=== PATIENT | male | born 1965 | race Caucasian/White ===

== ENCOUNTER 2020-02-21 06:34 | Day surgery (SDC) | payer BC, OTHER ==
[2020-02-21] MEDS ORDERED: Propofol 200 MG/20 ML SDV IV ONE (06:35)
[2020-02-21] MEDS ORDERED: Lactated Ringers 1,000 ML IV SCH (06:45)
[2020-02-21] MEDS ORDERED: Sodium Chloride 0.9% 10 ML Syringe FLUSH PRN (06:45)
--- NOTE | 2020-02-21 08:29 | PCM.OPNOTE ---
- General Post-Op/Procedure Note Date of Surgery/Procedure: 02/21/20 Operative Procedure(s): egd with biopsy Findings: gastroduodenitis Rossi's esophagus Pre Op Diagnosis: hematemasis Post-Op Diagnosis: gastroduodenitis. Rossi's esophagus Anesthesia Technique: DIANE Primary Surgeon: Ford Gore Anesthesia Provider: Juan Cardoso Pathology: stomach, duodenum and esophagus Complications: None Condition: Good Free Text/Narrative:: see dictation
--- NOTE | 2020-02-21 09:56 | OR ---
DATE OF OPERATION: 02/21/2020 SURGEON: Ford Gore MD PROCEDURE PERFORMED: Esophagogastroduodenoscopy with cold forceps biopsy. PREOPERATIVE DIAGNOSIS: Hematemesis. POSTOPERATIVE DIAGNOSES: 1. Gastroduodenitis. 2. Questionable Rossi's esophagus. INDICATIONS FOR PROCEDURE: This is a 54-year-old white male who, last weekend, had an episode of vomiting, and then with the second wave of emesis, noted some blood. He has a history of heavy alcohol use, was offered and accepted an EGD. DESCRIPTION OF OPERATION: After an excellent IV sedation was administered, the bite block was inserted. Flexible endoscope was passed without difficulty down the patient's esophagus into the stomach. Stomach was insufflated. Scope passed through the pylorus to 2nd portion of the duodenum and slowly withdrawn. The following findings were noted: In the first portion of the duodenum, patient was noted to have duodenitis. Biopsies were taken. Stomach, some diffuse gastritis, worse in the area of the antrum, biopsies were taken. GE junction measured at 40 cm, and while there was no evidence of any esophagitis, approximately a centimeter proximal to the GE junction, there was a patch of mucosa that had the appearance of Rossi's. This was a single patch measuring approximately 2 to 3 mm in size, and this was biopsied in its entirety and submitted in a single container. Remainder of the esophageal exam was unremarkable. The patient tolerated the procedure well, was taken to recovery in good condition. /[id number] /ERINL
== END 2020-02-21 09:08 | disposition home or self-care (01) ==
LOC: FB.SDS 06:34
PROVIDERS: ATTEND Surgery
DX: K29.90 Gastroduodenitis, unspecified, without bleeding (principal); K29.00 Acute gastritis without bleeding; K29.50 Unspecified chronic gastritis without bleeding; K21.0 Gastro-esophageal reflux disease with esophagitis; F17.200 Nicotine dependence, unspecified, uncomplicated; I10 Essential (primary) hypertension; E66.9 Obesity, unspecified; F17.210 Nicotine dependence, cigarettes, uncomplicated; Z91.012 Allergy to eggs; Z91.011 Allergy to milk products; Z79.899 Other long term (current) drug therapy; Z68.30 Body mass index [BMI] 30.0-30.9, adult
CPT/HCPCS: 88305; 88313; 88342; J2001; J2704; J7120

== ENCOUNTER 2021-07-21 09:54 | Emergency (ER) | payer BC ==
[2021-07-21] MEDS ORDERED: Sodium Chloride 0.9% 10 ML Syringe FLUSH PRN (10:13)
[2021-07-21] MEDS ORDERED: Aspirin 81 MG Tab.Chew PO STA (10:13)
[2021-07-21] MEDS: Nitroglycerin 0.4 MG Tab.SL SL PRN ×3 (10:15→10:30)
--- NOTE | 2021-07-21 10:53 | EDM.PDOC ---
ED HPI GENERAL MEDICAL PROBLEM - General Stated Complaint: chest pain Time Seen by Provider: 07/21/21 10:00 Source of Information: Reports: Patient History Limitations: Reports: No Limitations - History of Present Illness INITIAL COMMENTS - FREE TEXT/NARRATIVE: Patient presented to the ED because of chest pain which started at 2 pm yesterday, sternal area,05/03 with associated dizziness. Pain went away after resting and while at work today he developed another chest pain,06/03. He also has chronic diarrhea, denies having any N/V. No fever, chills, cough or cold. - Related Data Allergies Allergy/AdvReac Type Severity Reaction Status Date / Time egg Allergy Nausea and Verified 02/21/20 07:29 Vomiting lactose Allergy Nausea and Verified 02/21/20 07:29 Vomiting Home Meds: Home Meds Escitalopram Oxalate [Lexapro] 20 mg PO DAILY 02/20/20 [History] Isosorbide Mononitrate [Imdur] 60 mg PO DAILY 02/20/20 [History] Metoprolol Succinate [Toprol Xl] 100 mg PO DAILY 02/20/20 [History] atorvaSTATin [Lipitor] 80 mg PO DAILY 02/20/20 [History] Pantoprazole Sodium [Protonix] 40 mg PO QPM #90 tablet.dr 02/21/20 [Rx] Sucralfate [Carafate] 1 gm PO QIDACANDBED #120 tablet 02/21/20 [Rx] Nitroglycerin 0.4 mg SL ASDIRECTED PRN #30 tab.subl 07/21/21 [Rx] Past Medical History HEENT History: Reports: None Other HEENT History: EPIDERMAL CYST OF THE NECK Cardiovascular History: Reports: High Cholesterol, Hypertension Respiratory History: Reports: None Gastrointestinal History: Reports: None Other Genitourinary History: ERECTILE DYSFUNCTION 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 Musculoskeletal History: Reports: Osteoarthritis Neurological History: Reports: None Psychiatric History: Reports: Depression Other Psychiatric History: ALCOHOL DEPENDENCE, TOBACCO INDEPENDENCE Endocrine/Metabolic History: Reports: Obesity/BMI 30+ Hematologic History: Reports: None Immunologic History: Reports: None Oncologic (Cancer) History: Reports: None - Past Surgical History Head Surgeries/Procedures: Reports: None Cardiovascular Surgical History: Reports: Carotid Stents Respiratory Surgical History: Reports: None GI Surgical History: Reports: None Musculoskeletal Surgical History: Reports: Arthroscopic Knee, Joint Replacement Other Musculoskeletal Surgeries/Procedures:: HIP ARTHROPLASTY Social & Family History - Caffeine Use Caffeine Use: Reports: Coffee ED ROS GENERAL - Review of Systems Review Of Systems: See Below Constitutional: Reports: No Symptoms HEENT: Reports: No Symptoms Respiratory: Reports: No Symptoms Cardiovascular: Reports: Chest Pain Endocrine: Reports: No Symptoms GI/Abdominal: Reports: Diarrhea : Reports: No Symptoms Musculoskeletal: Reports: No Symptoms Skin: Reports: No Symptoms Neurological: Reports: Dizziness Psychiatric: Reports: No Symptoms ED EXAM, GENERAL - Physical Exam Exam: See Below Exam Limited By: No Limitations General Appearance: Alert, No Apparent Distress Eye Exam: Bilateral Eye: PERRL Ears: Normal External Exam, Normal Canal Nose: Normal Inspection, Normal Mucosa, No Blood Throat/Mouth: Normal Inspection, Normal Lips, Normal Teeth, Normal Gums Head: Atraumatic, Normocephalic Neck: Normal Inspection, Supple, Non-Tender, Full Range of Motion Respiratory/Chest: No Respiratory Distress, Lungs Clear, Normal Breath Sounds, No Accessory Muscle Use, Chest Non-Tender Cardiovascular: Normal Peripheral Pulses, Regular Rate, Rhythm, No Edema, No Gallop, No JVD, No Murmur, No Rub, Bradycardia GI/Abdominal: Normal Bowel Sounds, Soft, Non-Tender, No Organomegaly, No Distention, No Abnormal Bruit, No Mass Back Exam: Normal Inspection, Full Range of Motion Extremities: Normal Inspection, Normal Range of Motion, Non-Tender, No Pedal Edema, Normal Capillary Refill Neurological: Alert, Oriented, CN II-XII Intact, Normal Cognition, Normal Gait, Normal Reflexes, No Motor/Sensory Deficits Psychiatric: Normal Affect Skin Exam: Warm, Dry, Intact, Normal Color, No Rash Lymphatic: No Adenopathy #1 Interpretation EKG Date: 07/21/21 Time: 09:52 Rhythm: Other (Sinus Lalo) [place]: Normal P-Wave: Present QRS: Normal ST-T: Normal QT: Normal GA/PQ Interval: 147 Comparison: NA - No Prior EKG EKG Interpretation Comments: Sinus Lalo Course - Vital Signs Text/Narrative:: Lab/EKG result was reviewed and discussed with patient and his ASA 324 mg PO x1 NTG 05.4 mg SL Q5 X 3 doses - Orders/Labs/Meds Orders: Active Orders 24 hr Category Date Time Status EKG Documentation Completion [RC] ASDIRECTED Care 07/21/21 10:14 Active Nitroglycerin [Nitrostat] Med 07/21/21 10:13 Active 0.4 mg SL Q5M PRN Sodium Chloride 0.9% [Saline Flush] Med 07/21/21 10:13 Active 10 ml FLUSH ASDIRECTED PRN Saline Lock Insert [OM.PC] Routine Oth 07/21/21 10:13 Ordered EKG 12 Lead [EK] Routine Ther 07/21/21 10:13 Ordered Medication Orders Nitroglycerin (Nitroglycerin 0.4 Mg Tab.Sl) 0.4 mg SL Q5M PRN PRN Reason: Chest Pain Sodium Chloride (Sodium Chloride 0.9% 10 Ml Syringe) 10 ml FLUSH ASDIRECTED PRN PRN Reason: Keep Vein Open Labs: Laboratory Tests 07/21/21 07/21/21 07/21/21 Range/Units 10:30 10:30 10:30 WBC 7.9 (3.2-10.1) x10-3/uL RBC 4.42 (3.90-5.90) x10(6)uL Hgb 14.3 (12.9-17.7) g/dL Hct 43.3 (38.3-50.1) % MCV 97.9 (80.8-98.7) fL MCH 32.4 (27.0-33.3) pg MCHC 33.1 (28.7-35.3) g/dL RDW 14.0 (12.4-15.0) % Plt Count 242 (117-477) x10(3)uL MPV 7.4 (6.7-11.0) fL Neut % (Auto) 61.6 (40.3-71.8) % Lymph % (Auto) 29.9 (15.8-45.3) % [place] % (Auto) 6.6 (5.5-15.2) % Eos % (Auto) 1.0 (0.1-6.8) % Baso % (Auto) 0.9 (0.3-3.8) % Neut # (Auto) 4.9 (1.7-6.9) x10-3/uL Lymph # (Auto) 2.4 (0.5-4.5) x10-3/uL [place] # (Auto) 0.5 (0.0-1.2) x10-3/uL Eos # (Auto) 0.1 (0.0-0.6) x10-3/uL Baso # (Auto) 0.1 (0.0-0.3) x10-3/uL Sodium 140 (135-145) mmol/L Potassium 3.8 (3.5-5.3) mmol/L Chloride 103 (100-110) mmol/L Carbon Dioxide 24 (21-32) mmol/L BUN 13 (7-18) mg/dL Creatinine 1.0 (0.70-1.30) mg/dL Est Cr Clr Drug Dosing TNP Estimated GFR (MDRD) > 60 (>60) BUN/Creatinine Ratio 13.0 (9-20) Glucose 151 H (80-116) mg/dL Calcium 9.4 (8.6-10.2) mg/dL Total Bilirubin 0.5 (0.1-1.3) mg/dL AST 22 (5-25) IU/L ALT 39 H (12-36) U/L Alkaline Phosphatase 106 (56-112) IU/L Troponin I 12.5 (4.0-60.3) pg/mL Total Protein 7.0 (6.0-8.0) g/dL Albumin 3.2 L (3.5-5.2) g/dL Globulin 3.8 g/dL Albumin/Globulin Ratio 0.8 Meds: Medications Generic Name Dose Route Start Last Admin Trade Name Freq PRN Reason Stop Dose Admin Nitroglycerin 0.4 mg 07/21/21 10:13 Nitroglycerin 0.4 Mg Tab.Sl SL Q5M PRN Chest Pain Sodium Chloride 10 ml 07/21/21 10:13 Sodium Chloride 0.9% 10 Ml Syringe FLUSH ASDIRECTED PRN Keep Vein Open Discontinued Medications Generic Name Dose Route Start Last Admin Trade Name Freq PRN Reason Stop Dose Admin Aspirin 324 mg 07/21/21 10:13 Aspirin 81 Mg Tab.Chew PO 07/21/21 10:14 NOW STA Departure - Departure Time of Disposition: 11:30 Disposition: Home, Self-Care 01 Condition: Good Clinical Impression: Chest pain Prescriptions: Nitroglycerin 0.4 mg SL ASDIRECTED PRN #30 tab.subl PRN Reason: Chest Pain Instructions: Angina, [id number] Referrals: Juan Nelson MD [Primary Care Provider] - Additional Instructions: Please read discharge instructions on chest pain 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 Lay in bed while taking your nitro. If after 3 doses you still have chest pain-return to the ED right away. - My Orders Last 24 Hours: My Active Orders 07/21/21 10:13 Nitroglycerin [Nitrostat] 0.4 mg SL Q5M PRN Sodium Chloride 0.9% [Saline Flush] 10 ml FLUSH ASDIRECTED PRN Saline Lock Insert [OM.PC] Routine EKG 12 Lead [EK] Routine 07/21/21 10:14 EKG Documentation Completion [RC] ASDIRECTED - Assessment/Plan Last 24 Hours: My Active Orders 07/21/21 10:13 Nitroglycerin [Nitrostat] 0.4 mg SL Q5M PRN Sodium Chloride 0.9% [Saline Flush] 10 ml FLUSH ASDIRECTED PRN Saline Lock Insert [OM.PC] Routine EKG 12 Lead [EK] Routine 07/21/21 10:14 EKG Documentation Completion [RC] ASDIRECTED
== END 2021-07-21 11:40 | disposition home or self-care (01) ==
LOC: FB.ED 09:54
DX: R07.2 Precordial pain (principal); E78.00 Pure hypercholesterolemia, unspecified; I10 Essential (primary) hypertension; E66.9 Obesity, unspecified; Z68.29 Body mass index [BMI] 29.0-29.9, adult; Z91.012 Allergy to eggs; Z91.011 Allergy to milk products; Z79.899 Other long term (current) drug therapy
CPT/HCPCS: 36415; 80053; 84484; 85025; 93005; 99285; A9270

== ENCOUNTER 2022-01-08 07:35 | Emergency (ER) | payer BC ==
[2022-01-08] MEDS ORDERED: Sodium Chloride 0.9% 1,000 ML IV ONE (08:55)
[2022-01-08] MEDS ORDERED: Ondansetron 4 MG/2 ML SDV ONE (08:57)
[2022-01-08] MEDS ORDERED: Ondansetron 4 MG/2 ML SDV IVPUSH ONE (09:00)
== END 2022-01-08 10:10 | disposition home or self-care (01) ==
LOC: FB.ED 07:35
DX: R55 Syncope and collapse (principal); E86.0 Dehydration; E78.00 Pure hypercholesterolemia, unspecified; I10 Essential (primary) hypertension; E66.9 Obesity, unspecified; Z68.28 Body mass index [BMI] 28.0-28.9, adult; Z91.012 Allergy to eggs; Z91.011 Allergy to milk products; Z79.899 Other long term (current) drug therapy
CPT/HCPCS: 36415; 71045; 80053; 83880; 84484; 85025; 85610; 85730; 93005; 96374; 99284; J2405; J7030; 93010

== ENCOUNTER 2022-10-22 21:33 | Emergency (ER) | payer BC ==
[2022-10-22] MEDS ORDERED: Sodium Chloride 0.9% 1,000 ML IV ONE (21:45)
[2022-10-22 22:39] LABS: ESTIMATED GFR 49 mL/min (>60)
== END 2022-10-22 23:20 | disposition home or self-care (01) ==
LOC: FB.ED 21:33
DX: S09.90XA Unspecified injury of head, initial encounter (principal); F10.929 Alcohol use, unspecified with intoxication, unspecified; I45.10 Unspecified right bundle-branch block; I10 Essential (primary) hypertension; M19.90 Unspecified osteoarthritis, unspecified site; E11.9 Type 2 diabetes mellitus without complications; F17.200 Nicotine dependence, unspecified, uncomplicated; Y90.0 Blood alcohol level of less than 20 mg/100 ml; Z91.011 Allergy to milk products; Z91.012 Allergy to eggs; Z79.82 Long term (current) use of aspirin; Z79.899 Other long term (current) drug therapy; W10.9XXA Fall (on) (from) unspecified stairs and steps, initial encounter; Y93.01 Activity, walking, marching and hiking
CPT/HCPCS: 36415; 70450; 80053; 80307; 82947; 85025; 96360; 99285; J7030; 93005